=== PATIENT | female | born 1950 | race Caucasian/White ===

== ENCOUNTER 2017-06-14 16:32 | Emergency (ER) | payer BC, OTHER ==
[2017-06-14 16:56] VITALS: BP 138/74
--- NOTE | 2017-06-14 17:16 | UC ---
Ear Complaint HPI - HPI Summary HPI Summary: 3 days of worsening right ear pain that radiates in to her throat - History of Current Complaint Chief Complaint: UCEar Stated Complaint: EAR Time Seen by Provider: 06/14/17 17:10 Hx Obtained From: Patient Hx Last Menstrual Period: n/a ?: No Onset/Duration: Sudden Onset, Lasting Days - 3 Severity Initially: Moderate Severity Currently: Moderate Pain Intensity: 5 Pain Scale Used: 0-10 Numeric Aggravating Factors: Nothing Alleviating Factors: Nothing - Allergies/Home Medications Allergies/Adverse Reactions: Allergies Allergy/AdvReac Type Severity Reaction Status Date / Time No Known Allergies Allergy Verified 06/14/17 16:56 PMH/Surg Hx/FS Hx/Imm Hx Previously Healthy: No Cardiovascular History: Hypertension Neurological History: Seizures Other History Of: Negative For: HIV, Hepatitis B, Hepatitis C - Surgical History Surgical History: Yes Surgery Procedure, Year, and Place: TUBAL. hysterectomy - Family History Known Family History: Positive: None - Social History Occupation: Employed Full-time Lives: With Family Alcohol Use: Occasionally Alcohol Amount: 1 week Substance Use Type: None Smoking Status (MU): Never Smoked Tobacco Have You Smoked in the Last Year: No - Immunization History Most Recent Influenza Vaccination: no Most Recent Tetanus Shot: updated Most Recent Pneumonia Vaccination: none Review of Systems Constitutional: Negative Skin: Negative Eyes: Negative ENT: Sore Throat - right side of throat, Ear Ache - right Respiratory: Negative Cardiovascular: Negative Gastrointestinal: Negative Genitourinary: Negative Motor: Negative Neurovascular: Negative Musculoskeletal: Negative Neurological: Negative Psychological: Negative Is Patient Immunocompromised?: No All Other Systems Reviewed And Are Negative: Yes Physical Exam Triage Information Reviewed: Yes Appearance: Well-Appearing, No Pain Distress, Well-Nourished Vital Signs: Initial Vital Signs Temp 98.6 F 06/14/17 16:53 Pulse 72 06/14/17 16:53 Resp 16 06/14/17 16:53 BP 138/74 06/14/17 16:53 Pulse Ox 100 06/14/17 16:53 Vital Signs Reviewed: Yes Eye Exam: Normal Eyes: Positive: Conjunctiva Clear ENT Exam: Normal ENT: Positive: Normal ENT inspection, Hearing grossly normal, Pharynx normal, TMs normal - left, TM bulging - right. Negative: Nasal congestion, Nasal drainage, Tonsillar swelling, Tonsillar exudate, Trismus, Muffled/hoarse voice Dental Exam: Normal Neck exam: Normal Neck: Positive: Supple, Nontender, No Lymphadenopathy Respiratory Exam: Normal Respiratory: Positive: Chest non-tender, Lungs clear, Normal breath sounds, No respiratory distress, No accessory muscle use Cardiovascular Exam: Normal Cardiovascular: Positive: RRR, No Murmur, Pulses Normal, Brisk Capillary Refill Musculoskeletal Exam: Normal Musculoskeletal: Positive: Strength Intact, ROM Intact, No Edema Neurological Exam: Normal Neurological: Positive: Alert, Muscle Tone Normal Psychological Exam: Normal Skin Exam: Normal Ear Complaint Course/Dx - Course Course Of Treatment: Amoxicillin, decongestant, increase fluids, tylenol, aleeve for pain follow with pcp - Differential Dx/Diagnosis Differential Diagnosis/HQI/PQRI: Otitis Externa, Otitis Media, URI Provider Diagnoses: right serrous otitis Media, eustation tube dysfunction Discharge - Discharge Plan Condition: Stable Disposition: HOME Prescriptions: Amoxicillin PO (*) [Amoxicillin 875 MG (*)] 875 mg PO BID #20 tab Patient Education Materials: Pseudoephedrine (By mouth), Serous Otitis Media ( ED) Referrals: Margy Varela MD [Primary Care Provider] - If Needed
== END 2017-06-14 17:22 | disposition home or self-care (01) ==
LOC: UCCORT 16:32
DX: H65.91 Unspecified nonsuppurative otitis media, right ear (principal); H69.91 Unspecified Eustachian tube disorder, right ear; I10 Essential (primary) hypertension; R56.9 Unspecified convulsions
CPT/HCPCS: 99212; G0463

== ENCOUNTER 2017-08-25 15:40 | Emergency (ER) | payer BC, OTHER ==
--- NOTE | 2017-08-25 17:10 | UC ---
Upper Extremity HPI - HPI Summary HPI Summary: 67 year old female presents with left elbow pain and swelling. - History of Current Complaint Chief Complaint: UCUpperExtremity Stated Complaint: FALL LEFT ARM Time Seen by Provider: 08/25/17 17:09 Hx Obtained From: Patient Hx Last Menstrual Period: n/a Onset/Duration: Sudden Onset Severity Initially: Moderate Severity Currently: Moderate Pain Scale Used: 0-10 Numeric - 8 - Allergies/Home Medications Allergies/Adverse Reactions: Allergies Allergy/AdvReac Type Severity Reaction Status Date / Time No Known Allergies Allergy Verified 08/25/17 17:07 PMH/Surg Hx/FS Hx/Imm Hx Previously Healthy: Yes Other History Of: Negative For: HIV, Hepatitis B, Hepatitis C - Surgical History Surgical History: Yes Surgery Procedure, Year, and Place: TUBAL. hysterectomy - Family History Known Family History: Positive: None - Social History Alcohol Use: Occasionally Alcohol Amount: 1 week Substance Use Type: None Smoking Status (MU): Never Smoked Tobacco Have You Smoked in the Last Year: No - Immunization History Most Recent Influenza Vaccination: no Most Recent Tetanus Shot: updated Most Recent Pneumonia Vaccination: none Review of Systems Constitutional: Negative Skin: Negative Eyes: Negative ENT: Negative Respiratory: Negative Cardiovascular: Negative Gastrointestinal: Negative Genitourinary: Negative Motor: Negative Neurovascular: Negative Musculoskeletal: Other: - left elbow fracture Neurological: Negative Psychological: Negative All Other Systems Reviewed And Are Negative: Yes Physical Exam Triage Information Reviewed: Yes Vital Signs Reviewed: Yes Eye Exam: Normal ENT Exam: Normal Dental Exam: Normal Neck exam: Normal Neck: Positive: 1 Respiratory Exam: Normal Cardiovascular Exam: Normal Abdominal Exam: Normal Musculoskeletal: Positive: Other: - left elbow fracture Neurological Exam: Normal Psychological Exam: Normal Skin Exam: Normal Upper Extremity Course/Dx - Differential Dx/Diagnosis Provider Diagnoses: left elbow fracture Discharge - Discharge Plan Condition: Stable Disposition: HOME Prescriptions: Acetaminop/Codeine 30 MG TAB* [Tylenol/Codeine 30 MG TAB*] 1 tab PO Q8H PRN #9 tab MDD 3 PRN Reason: Pain Patient Education Materials: Elbow Fracture (ED) Referrals: Ramón Gaines MD [Medical Doctor] - Margy Varela MD [Primary Care Provider] -
[2017-08-25 17:11] VITALS: BP 141/76
--- NOTE | 2017-08-25 17:30 | RAD ---
INDICATION: Right elbow injury COMPARISON: None TECHNIQUE: AP, lateral, and oblique views were obtained. FINDINGS: There is proximal ulnar fracture involving the olecranon with rotation of the dominant fracture fragment which is distracted approximately 2 cm no other bony abnormalities are seen. The elbow otherwise contiguous normally. There is a small joint effusion. IMPRESSION: DISTRACTED FRACTURE FROM THE OLECRANON
== END 2017-08-25 17:55 | disposition home or self-care (01) ==
LOC: UCCORT 15:40
DX: S52.021A Displaced fracture of olecranon process without intraarticular extension of right ulna, initial encounter for closed fracture (principal); W19.XXXA Unspecified fall, initial encounter; Y93.9 Activity, unspecified; Y92.9 Unspecified place or not applicable
CPT/HCPCS: 99213; G0463

== ENCOUNTER 2017-08-30 12:24 | Day surgery (SDC) | payer BC, OTHER ==
[~2017-08-30 12:24] MED LIST: Buffered Lidocaine 0.9% SYRIN* 5 ML/SYR SYRINGE INTRADERM ONE; Sodium Citrate/Citric Acid* 15 ML UDC PO ONE
[2017-08-30] MEDS ORDERED: ceFAZolin 2 GM PREMIX (*) 2 GM/50 ML BAG IVPB ONE (12:42)
[2017-08-30] MEDS ORDERED: Sodium Citrate/Citric Acid* 15 ML UDC ONE (12:42)
[2017-08-30] MEDS ORDERED: Buffered Lidocaine 0.9% SYRIN* 5 ML/SYR SYRINGE ONE (12:43)
[2017-08-30] MEDS ORDERED: fentaNYL* 50 MCG/ML 2 ML VIAL (100 MCG VIAL) ONE (14:22)
[2017-08-30] MEDS ORDERED: Midazolam* 1 MG/ML 2 ML VIAL (2 MG) ONE (14:22)
[2017-08-30] MEDS ORDERED: Propofol* 10 MG/ML 20 ML BTL IV PUSH ONE (14:22)
[2017-08-30] MEDS ORDERED: ROPIVACAINE 5 MG/ML 30 ML BTL (0.5%) ONE (14:22)
[2017-08-30] MEDS ORDERED: Ondansetron INJ* 2 MG/ML VIAL IV PRN (15:57)
[2017-08-30] MEDS ORDERED: fentaNYL* 50 MCG/ML 2 ML VIAL (100 MCG VIAL) IV PRN (15:57)
[2017-08-30] MEDS ORDERED: Ketorolac INJ* 30 MG/ML 1 ML VIAL IV PRN (15:57)
--- NOTE | 2017-08-30 17:49 | RAD ---
INDICATION: ORIF right elbow COMPARISON: August 25, 2017 FINDINGS: 96 seconds of fluoroscopy were provided for the orthopedics department. Fluoroscopic spot imaging of the right elbow were obtained for operative control and show open reduction and internal fixation of the proximal ulnar fracture. The fracture fragments are in anatomic position . CPT II Codes: 6045F (fluoro time doc)
[2017-08-30 19:02] VITALS: BP 130/65
--- NOTE | 2017-08-31 07:15 | OP ---
DATE OF OPERATION: 08/30/17 [facility] DATE OF : 54 SURGEON: Richard Gregg MD DIVERSIFIED CROPS SUPERVISOR: VALERIO Bean ANESTHESIOLOGIST: Dr. Beatty. ANESTHESIA: General with axillary block. PRE-OP DIAGNOSIS: Right displaced olecranon fracture. POST-OP DIAGNOSIS: Right displaced olecranon fracture. OPERATIVE PROCEDURE: Open reduction internal fixation, right intraarticular displaced olecranon fracture. IMPLANT: Synthes variable angle olecranon plate and screws. INDICATIONS: Sofya had the aforementioned fracture. I talked her about her options, risks, and benefits. She had wanted to proceed with surgery. ESTIMATED BLOOD LOSS: 10 mL. COMPLICATIONS: None. FINDINGS: As expected. DESCRIPTION OF PROCEDURE: Sofya was seen in the preoperative holding area. The correct site, side, and procedure were identified. We came back to the operating room where the arm was prepped and draped in the usual fashion. She was positioned in the lateral decubitus position. An axillary block had been performed. A time-out was performed. I began by making a longitudinal incision right in the midline posteriorly. The dissection was carried down through the subcutaneous tissue. The full thickness flaps were raised off the triceps fascia. The fracture site was exposed. Subperiosteal flaps were raised off of the proximal ulna. The fracture site was opened up by retracting the proximal fragment proximal and hematoma and all the soft tissue interposed were excised and cleaned out. The bony edges were delineated sharply. I then made a 2.5 mm hole from my Synthes clamp. This was brought and the fracture was clamped in anatomic alignment. I then placed a 3.5 mm lag screw traversing the fracture site. This provided excellent compression across the fracture. I then brought in my plate. I got the location for it and then I made a longitudinal split and released just in a triceps tendon proximally to get the plate to sit down on the bone. The plate was then pinned in place. I placed a 3.5 mm cortical screw in the oblong hole distally. I then came proximally and placed two 2.7 mm metaphyseal screws subchondrally. This provided additional compression across the fracture site. I then placed another 3.5 mm cortical screw distally and then a couple of 2.7 mm cortical screws distally as well. Initially one of the metaphyseal screws was a bit radial and now into the PRUJ and so I removed that and changed it and placed out with a variable angle locking screw. I added a few more variable angle locking screws proximally. The fixation was very nice. The reduction was anatomic. The wound was copiously irrigated. I closed the split in the triceps tendon with 0 Vicryl suture. The plate was covered to the extent possible and the periosteum repaired with 0 Vicryl suture. The subcutaneous tissue was reapproximated with 3-0 Vicryl suture. The skin was closed with 4-0 Monocryl suture and Steri-Strips. The wound had been copiously irrigated out. The wound was dressed with 4x4, sterile Webril, and a posterior soft splint with a lateral buttress was applied with the elbow in about 40 degrees of flexion. Tourniquet was deflated. The hand pinked up immediately. She was awoken up and taken to the recovery room in stable condition. [id number]/CPS #: [id number] JOHNNY
== END 2017-08-30 19:43 | disposition home or self-care (01) ==
LOC: OR 12:24
PROVIDERS: ATTEND Orthopaedic Surgery Hand Surgery
DX: S52.031A Displaced fracture of olecranon process with intraarticular extension of right ulna, initial encounter for closed fracture (principal); R55 Syncope and collapse; G40.209 Localization-related (focal) (partial) symptomatic epilepsy and epileptic syndromes with complex partial seizures, not intractable, without status epilepticus; W18.39XA Other fall on same level, initial encounter; Y92.480 Sidewalk as the place of occurrence of the external cause; I10 Essential (primary) hypertension
CPT/HCPCS: 76001; A9270-GY; C1713; C1725; C1776; J0690; J2250; J2704; J2795; J3010

== ENCOUNTER 2018-05-02 13:09 | Emergency (ER) | payer BC ==
[2018-05-02 13:45] VITALS: BP 130/63
[2018-05-02] MEDS ORDERED: Albuterol 2.5 MG/3 ML NEB.SOL* (0.083%) INH ONE (13:56)
--- NOTE | 2018-05-02 13:56 | UC ---
UC General HPI - HPI Summary HPI Summary: pt became ill with sinus congestion that moved to her chest. for the past week, she has been having worsening cough, congestion and HORTON. she has gotten no relief with otc medications that were suggested by her pharmacist. she denies any cp, copd/asthma and fever. - History of Current Complaint Chief Complaint: UCRespiratory Stated Complaint: COUGH/SINUS Time Seen by Provider: 05/02/18 13:45 Hx Obtained From: Patient Hx Last Menstrual Period: n/a Onset/Duration: Gradual Onset Timing: Constant Pain Intensity: 0 Associated Signs & Symptoms: Positive: Cough, Headache. Negative: Chest Pain - Allergy/Home Medications Allergies/Adverse Reactions: Allergies Allergy/AdvReac Type Severity Reaction Status Date / Time No Known Allergies Allergy Verified 05/02/18 13:40 Home Medications: Home Medications Phenylephrine/Acetaminophn/Cpm [Nighttime Sinus Congestio] 2 tab PO ONCE [History Confirmed 05/02/18] PMH/Surg Hx/FS Hx/Imm Hx Cardiovascular History: Hypertension Neurological History: Seizures Other History Of: Negative For: HIV, Hepatitis B, Hepatitis C - Surgical History Surgical History: Yes Surgery Procedure, Year, and Place: tubal ligation - [facility]. hysterectomy - [facility]. right arm - Family History Known Family History: Positive: None - Social History Occupation: Employed Full-time Lives: With Family Alcohol Use: Occasionally Alcohol Amount: 1 week Substance Use Type: None Smoking Status (MU): Never Smoked Tobacco Have You Smoked in the Last Year: No - Immunization History Most Recent Influenza Vaccination: no Most Recent Tetanus Shot: updated Most Recent Pneumonia Vaccination: none Hx Tetanus, Diphtheria Vaccination: No Vaccination Up to Date: Yes Review of Systems Constitutional: Negative Skin: Negative Eyes: Negative ENT: Sinus Congestion Respiratory: Cough Cardiovascular: Negative Gastrointestinal: Negative Genitourinary: Negative Motor: Negative Neurovascular: Negative Musculoskeletal: Negative Neurological: Headache Psychological: Negative Is Patient Immunocompromised?: No All Other Systems Reviewed And Are Negative: Yes Physical Exam Triage Information Reviewed: Yes Appearance: Well-Appearing Vital Signs: Initial Vital Signs Temp 97.8 F 05/02/18 13:38 Pulse 71 05/02/18 13:38 Resp 17 05/02/18 13:38 BP 130/63 05/02/18 13:38 Pulse Ox 97 05/02/18 13:38 Vital Signs Reviewed: Yes Eyes: Positive: Conjunctiva Inflamed ENT: Positive: Pharynx normal, TMs normal. Negative: Nasal congestion, Nasal drainage Neck: Positive: Supple, Nontender, No Lymphadenopathy Respiratory: Positive: Lungs clear, Decreased breath sounds, Other: - Frequent bronchospatic cough with congestion. Cardiovascular: Positive: RRR, No Murmur Abdomen Description: Positive: Nontender, No Organomegaly, Soft Bowel Sounds: Positive: Present Musculoskeletal: Positive: ROM Intact, No Edema Neurological: Positive: Alert Psychological: Positive: Age Appropriate Behavior Skin Exam: Normal Re-Evaluation - Re-Evaluation First Eval Re-Evaluation Time: 14:10 Change: Improved - raising sputum and less bronchospam to cough post neb. pt notes feeling better as well. Course/Dx - Course Course Of Treatment: Ill x 1 week with worsening cough, chest congestion and HORTON. no relief otc medication as suggested by pharmacist thus will cover for presumtive bacterial infection - Differential Dx - Multi-Symptom Provider Diagnoses: Acute cough. Bronchospasm. Discharge - Sign-Out/Discharge Documenting (check all that apply): Patient Departure - Discharge Plan Condition: Stable Disposition: HOME Prescriptions: Albuterol HFA INHALER* [Ventolin HFA Inhaler*] 2 puff INH Q6H #1 mdi Amoxicillin/Clavulanate TAB* [Augmentin TAB 875*] 875 mg PO BID #14 tab Patient Education Materials: Acute Cough (ED), Bronchospasm (ED) Referrals: Margy Varela MD [Primary Care Provider] - 7 Days - Billing Disposition and Condition Condition: STABLE Disposition: Home
== END 2018-05-02 14:23 | disposition home or self-care (01) ==
LOC: UCCORT 13:09
DX: J98.01 Acute bronchospasm (principal)
CPT/HCPCS: 99212; G0463

== ENCOUNTER 2018-07-28 07:20 | Day surgery (SDC) | payer BC ==
[~2018-07-28 07:20] MED LIST changes: +Dexamethasone IV* 4 MG/ML 1 ML (4 MG) IV SLOW PU ONE; +Famotidine IV* 10 MG/ML 2 ML (20 mg) IV ONE; -Sodium Citrate/Citric Acid* 15 ML UDC PO ONE
[2018-07-28] MEDS ORDERED: Famotidine IV* 10 MG/ML 2 ML (20 mg) ONE (07:44)
[2018-07-28] MEDS ORDERED: ceFAZolin 2 GM PREMIX in ORs 2 GM/50 ML BAG IVPB ONE (07:44)
[2018-07-28] MEDS ORDERED: Dexamethasone IV* 4 MG/ML 1 ML (4 MG) ONE (07:44)
[2018-07-28] MEDS ORDERED: fentaNYL* 50 MCG/ML 2 ML VIAL (100 MCG VIAL) ONE ×2 (08:59→10:01)
[2018-07-28] MEDS ORDERED: Mivacurium Chloride* 20 MG/10 ML VIAL IV ONE (09:00)
[2018-07-28] MEDS ORDERED: Bupivacaine 0.25% SDV* 30 ML ONE (09:00)
[2018-07-28] MEDS ORDERED: Propofol* 10 MG/ML 20 ML BTL IV PUSH ONE (09:00)
[2018-07-28] MEDS ORDERED: Lidocaine 2% PF * 5 ML VIAL ONE (09:00)
[2018-07-28] MEDS ORDERED: Midazolam* 1 MG/ML 2 ML VIAL (2 MG) ONE (09:00)
[2018-07-28] MEDS ORDERED: fentaNYL* 50 MCG/ML 2 ML VIAL (100 MCG VIAL) IV PRN (09:04)
[2018-07-28] MEDS ORDERED: Naloxone* 0.4 MG/ML 1 ML VIAL IV PRN (09:04)
[2018-07-28] MEDS ORDERED: oxyCODONE/Acetamin 5/325 MG* TAB PO PRN (09:04)
[2018-07-28] MEDS ORDERED: DiMENhydriNATE IV* 50 MG/ML VIAL IV PUSH PRN (09:04)
[2018-07-28] MEDS ORDERED: Ketorolac INJ* 30 MG/ML 1 ML VIAL ONE (09:30)
[2018-07-28] MEDS ORDERED: Ondansetron INJ* 2 MG/ML VIAL ONE (09:42)
[2018-07-28 11:50] VITALS: BP 101/62
--- NOTE | 2018-07-29 05:47 | OP ---
DATE OF OPERATION: 07/28/18 - [facility] DATE OF : 54 SURGEON: Richard Gregg MD POWER PLANT INSTALLER: VALERIO Crawford ANESTHESIOLOGIST: Dr. Brian. ANESTHESIA: General. PRE-OP DIAGNOSIS: Retained hardware, right olecranon plate and screws. POST-OP DIAGNOSIS: Retained hardware, right olecranon plate and screws. OPERATIVE PROCEDURE: Removal of right olecranon plate and screws. INDICATIONS: Sofya has a very prominent hardware on the posterior elbow. The elbow itself is looking great but the hardware is symptomatic. We talked about risks and benefits, she wanted to proceed with surgery. ESTIMATED BLOOD LOSS: 2 mL. COMPLICATIONS: None. FINDINGS: See above and below. DESCRIPTION OF PROCEDURE: Sofya was seen in the preoperative holding area. The correct site, side, and procedure were identified. We came back to the operating room. She was positioned in the lateral decubitus position with the arm on an arm messina so that the posterior elbow was nicely available. The arm was prepped and draped in the usual fashion. A time-out was performed. I re-opened her posterior incision. The dissection was carried down through to the fascia and the soft tissue layer overlying the plate. This was incised longitudinally and raised as a flap off the plate. I then removed all the plate and screws uneventfully. The rongeur was used to smooth back any rough edges to a nice smooth edge. I then removed the medial to lateral lag screw. Again, the rongeur was used to smooth back any rough edges. Everything was irrigated out copiously. The soft tissue layer over the bone was repaired with 3-0 Vicryl suture. The distal triceps tendon split was repaired with 0 Vicryl suture with the knots buried. The skin was closed with 4-0 Monocryl and Steri- Strips. 0.25% Marcaine was infiltrated into the operative area. A long arm splint with a lateral buttress was applied. The tourniquet was deflated. The hand pinked up immediately. She was taken to the recovery room in stable condition. [id number]/CPS #: [id number] MTDD
== END 2018-07-28 11:41 | disposition home or self-care (01) ==
LOC: OREAST 07:20
PROVIDERS: ATTEND Orthopaedic Surgery Hand Surgery
DX: T84.84XA Pain due to internal orthopedic prosthetic devices, implants and grafts, initial encounter (principal); Y83.1 Surgical operation with implant of artificial internal device as the cause of abnormal reaction of the patient, or of later complication, without mention of misadventure at the time of the procedure; S52.021D Displaced fracture of olecranon process without intraarticular extension of right ulna, subsequent encounter for closed fracture with routine healing; X58.XXXD Exposure to other specified factors, subsequent encounter; Y92.9 Unspecified place or not applicable; I10 Essential (primary) hypertension
CPT/HCPCS: 88300; J0690; J1100; J1885; J2250; J2405; J2704; J3010